=== PATIENT | female | born 1960 | race Caucasian/White ===

== ENCOUNTER 2020-11-26 13:53 | Emergency (ER) | payer OTHER ==
[2020-11-26 16:21] LABS: BASOPHIL 0.4 % (0-2); EOSINOPHIL 2.7 % (0-5); HCT 40.9 % (37.0-47.0); HGB 13.3 g/dl (12.5-16.0); LYMPHOCYTE 31.7 % (15-48); MCH 30.8 pg (25.0-31.0); MCHC 32.5 g/dL (32.0-36.0); MCV 94.7 fL (78.0-100.0); MPV 8.6 fL (6.0-9.5); NRBC 0; PLT 221 K/uL (150-400); RBC 4.32 M/uL (4.20-5.40); RDW 13.2 % (11.5-14.0); WBC 5.2 K/uL (4.0-10.5)
[2020-11-26 16:39] LABS: ALBUMIN 3.5 g/dL (3.4-5.0); BILIRUBIN - TOTAL 0.4 mg/dL (0.2-1.0); BUN/CREAT RATIO (CALC) 18.6 RATIO; CREATININE 1.18 mg/dL (0.51-0.95); GLOBULIN (CALCULATION) 3.6 g/dL; TOTAL PROTEIN 7.1 g/dL (6.4-8.2)
[2020-11-26 19:50] LABS: BILIRUBIN NEGATIVE (NEGATIVE); BLOOD NEGATIVE Ery/uL (NEGATIVE); CLARITY CLEAR (CLEAR); COLOR YELLOW (YELLOW); GLUCOSE (U) NORMAL (NORMAL); LEUKOCYTES NEGATIVE Leu/uL (NEGATIVE); NITRITE NEGATIVE (NEGATIVE); PROTEIN NEGATIVE (NEGATIVE); UROBILINOGEN 0.2 mg/dL (0.2-1.0)
== END 2020-11-26 21:01 | disposition home or self-care (01) ==
LOC: FER 13:53
PROVIDERS: Emergency Medicine
DX: M79.605 Pain in left leg (principal); M79.604 Pain in right leg; Z86.718 Personal history of other venous thrombosis and embolism
CPT/HCPCS: 36415; 71045; 80053; 81003; 85025; 85379; 93970

== ENCOUNTER 2021-05-29 09:53 | Day surgery (SDCO) | payer OTHER ==
[~2021-05-29] VITALS: Ht 144.8 cm; Wt 118.6 kg
[2021-05-29 10:57] LABS: CORONAVIRUS 2019 SARS-COV-2 POSITIVE (NEGATIVE)
[2021-05-29 10:58] LABS: INFLUENZA A NAA NEGATIVE (NEGATIVE)
[2021-05-29 11:55] LABS: BASOPHIL 0.2 % (0-2); EOSINOPHIL 0 % (0-5); HCT 40.6 % (37.0-47.0); LYMPHOCYTE 21.6 % (15-48); MCH 29.5 pg (25.0-31.0); MCV 92.1 fL (78.0-100.0); MONOCYTE 12.5 % (0-12); MPV 9.3 fL (6.0-9.5); NEUTROPHIL 65.5 % (41-80); NRBC 0; PLT 149 K/uL (150-400); RBC 4.41 M/uL (4.20-5.40); RDW 13.5 % (11.5-14.0); WBC 4.4 K/uL (4.0-10.5)
[2021-05-29 12:10] LABS: ALBUMIN 3.4 g/dL (3.4-5.0); BILIRUBIN - TOTAL 0.4 mg/dL (0.2-1.0); BUN/CREAT RATIO (CALC) 14.6 RATIO; CREATININE 1.3 mg/dL (0.51-0.95); GLOBULIN (CALCULATION) 3.5 g/dL; POTASSIUM 4.3 mmol/L (3.5-5.1); TOTAL PROTEIN 6.9 g/dL (6.4-8.2)
[2021-05-29] MEDS ORDERED: BACLOFEN20 MG PO (16:10)
[2021-05-29] MEDS ORDERED: METOPROLOL SUCC25 MG PO (16:12)
[2021-05-29] MEDS ORDERED: NAPROXEN500 MG PO (16:12)
[2021-05-29] MEDS ORDERED: DOXYCYCLINE MO100 M1 PO (16:12)
--- NOTE | 2021-05-30 02:23 | NUR ---
PER PTS DAUGHTER: CASH [phone]. "CALL ANYTIME." PT GAVE VERBAL PERMISSION TO SPEAK TO DAUGHTER REGARDING CARE.
[2021-05-30 04:52] LABS: BASOPHIL 0 % (0-2); EOSINOPHIL 0 % (0-5); HCT 41.9 % (37.0-47.0); HGB 13.4 g/dl (12.5-16.0); LYMPHOCYTE 23.1 % (15-48); MCH 29.9 pg (25.0-31.0); MCV 93.5 fL (78.0-100.0); MPV 9.6 fL (6.0-9.5); NEUTROPHIL 68.4 % (41-80); NRBC 0; PLT 133 K/uL (150-400); RBC 4.48 M/uL (4.20-5.40); RDW 13.4 % (11.5-14.0); WBC 2.1 K/uL (4.0-10.5)
[2021-05-30 06:08] LABS: BUN/CREAT RATIO (CALC) 21.2 RATIO; CREATININE 0.99 mg/dL (0.51-0.95); POTASSIUM 4.2 mmol/L (3.5-5.1)
[2021-05-31] MEDS ORDERED: DEXAMETHASONE 2M2 MG PO (18:10)
[2021-05-31] MEDS ORDERED: VIBRAMYCIN100 MG PO (18:10)
[2021-05-31] MEDS ORDERED: PROVENTIL HFA6.7 GM INH (18:18)
[2021-05-31] MEDS ORDERED: ATROVENT HFA12.9 GM INH (18:18)
== END 2021-05-31 18:36 | disposition home or self-care (01) ==
LOC: FER 09:53 → FMS 14:18
PROVIDERS: Internal Medicine; ADMIT Internal Medicine
DX: U07.1 COVID-19 (principal); J12.82 Pneumonia due to coronavirus disease 2019; J20.9 Acute bronchitis, unspecified; J44.1 Chronic obstructive pulmonary disease with (acute) exacerbation; I10 Essential (primary) hypertension; E78.00 Pure hypercholesterolemia, unspecified; M54.9 Dorsalgia, unspecified; Z86.711 Personal history of pulmonary embolism; Z90.710 Acquired absence of both cervix and uterus; Z72.89 Other problems related to lifestyle; Z88.5 Allergy status to narcotic agent; Z87.891 Personal history of nicotine dependence
CPT/HCPCS: 36415; 36600; 71045; 71046; 78580; 80048; 80053; 82728; 82803; 83605; 83880; 85025; 85379; 93005; 94640; C9399; G0378; J1650; J7030; J7050; J8540; U0002